=== PATIENT | female | born 1960 | race Caucasian/White ===

== ENCOUNTER 2023-10-24 23:52 | Observation (INO) | payer OTHER, SELFPAY ==
[2023-10-24] VITALS (12 sets, daily range): BP systolic 110–169; BP diastolic 77–102; BMI 26.7
--- NOTE | 2023-10-24 18:55 | ED.GENMED ---
History of Present Illness
<Dejuan Veras MD - Last Filed: 10/24/23 20:25>
General
Chief Complaint: Chest Pain
Source: patient
Exam Limitations: none
Time Seen by Provider: 10/24/23 18:46
Nursing documentation reviewed up to this point in time: agreed with
History of Present Illness
History of Present Illness:
Patient with history of hypercholesterolemia, who recently stopped taking her medication, presents to ED secondary to sudden onset of chest pain, shortly after returning home from attending [facility] around 3 PM. Chest pain described as pressure,
along with pain in the back along her scapula, with with radiation down her arm, along with nausea and 'not feeling well'. Denies shortness of breath. Denies dizziness. Denies diaphoresis. Patient states that she had similar episode 2 days ago
which resolved spontaneously. Denies smoking. Denies recent travel or surgery. Denies recent illness. There is family history of heart disease, with her father having an MT in his 40s.
Review of Systems
<Dejuan Veras MD - Last Filed: 10/24/23 20:25>
Review of Systems
Allergies reviewed?: Yes
All Other Systems: ROS reviewed and negative except as documented in HPI and ROS
Constitutional: Reports no symptoms
EENT: Reports no symptoms
Respiratory: Reports no symptoms
Cardiac: Reports chest pain
ABD/GI: Reports nausea
: Reports no symptoms
Musculoskeletal: Reports no symptoms
Skin: Reports no symptoms
Neurological: Reports no symptoms
Phy Exam
<Dejuan Veras MD - Last Filed: 10/24/23 20:25>
Physical Exam
Physical Exam:
Physical Exam
General: mild distress, not acutely ill. afebrile
Head: nc/at. eomi
Neck: supple. no meningeal signs.
Heart: s1/s2 regular rate and rhythm, no murmur. equal radial pulses.
Lungs: no acute respiratory distress. clear bilaterally
Abdomen: normal bowel sounds. not tender.
Neuro: alert and oriented. no focal neurological deficits
Skin: no rash
Psychiatric: well kept. interactive and cooperative
Extremities: no edema. no calf tenderness.
Scores
<Katie Dumont MD - Last Filed: 10/25/23 02:34>
Heart Score for Chest Pain Patients
STEMI patient?: Not applicable
Course
<Dejuan Veras MD - Last Filed: 10/24/23 20:25>
Orders/Labs/Results
Orders:
Orders
10/24/23 18:34
Electrocardiogram (*1) Urgent
Reason for Study: Chest Pain
EKG- Treatment ONCE
10/24/23 18:52
Complete Blood Count/With Diff Urgent
Comprehensive Metabolic Panel Urgent
Lipase Urgent
Prothrombin Time Urgent
Troponin I Urgent
10/24/23 18:54
CR Chest Portable - 1 View Urgent
Comment:
Reason For Exam: chest pain
Reason Study Needs to be Portable: Patient Unstable
10/24/23 18:55
Aspirin Chewable [Low Strength Aspirin] 324 mg PO NOW STA
Nitroglycerin Sublingual [Nitrostat (Sublingual)] 0.4 mg SL NOW STA
10/24/23 19:06
Nitroglycerin Ointment [Nitro-Bid] 0.5 inch TOPICAL NOW STA
Nitroglycerin Ointment [Nitro-Bid] 1 inch .ROUTE .STK-MED ONE
10/24/23 19:57
EKG- Treatment ONCE
10/24/23 21:30
Electrocardiogram (*1) Urgent
Reason for Study: Chest Pain
10/24/23 21:31
Troponin I Urgent
10/24/23 22:16
Electrocardiogram (*1) Urgent
Reason for Study: Chest Pain
EKG- Treatment ONCE
10/24/23 22:58
Admit/Transfer Patient As Directed
Co-Sign Provider:
Level of Care: Observation services
Assign to:: Telemetry
Physician / Group: [email or web address]
Diagnosis: CP evalaute for ACS
Reason for Telemetry: Chest Pain syndromes
Date to Stop Telemetry: 10/26/23
Time to Stop Telemetry: 11:00
10/24/23 22:59
Code Status As Directed
Resuscitation Status: Full Code
10/24/23 23:00
Flush (0.9% Sodium Chloride) [Flush (Nss)] See Dose Instructions IV PER PROTOCOL
10/24/23 23:01
Aspirin Chewable [Low Strength Aspirin] 81 mg PO NOW STA
10/25/23 00:32
Electrocardiogram (*1) Q6H
Reason for Study: Chest Pain
Comment: at admission and Q3H for total of 3, to be done with each troponin
Nitroglycerin Anderson [Nitrolingual Anderson] See Dose Instructions SL [id number] PRN
10/25/23 00:32
Echo 2D MMode Color/Doppler Routine
Reason for Study: chest pain
CARDIOLOGY CONSULT Routine
Consulting Provider: Ottoniel Delatorre
Was physician already notified: Yes
Reason for consult: CP evalaute for ACS
Activity As Directed
Activity Level: As Tolerated
INT (Intravenous Needle Therapy) As Directed
Comment: maintain peripheral IV access
Intake/ Output As Directed
Frequency: Per unit guidelines
Vital Signs As Directed
Frequency: q4h
Weight As Directed
Frequency: Daily
DX Deep Vein Thrombosis Video Routine
10/25/23 01:00
Glycohemoglobin (HgbA1c) Routine
Troponin I Q3H
Comment: at admit & Q3H for 3 total including ED draws, obtain ECG with each level
10/25/23 03:32
Troponin I Q3H
Comment: at admit & Q3H for 3 total including ED draws, obtain ECG with each level
10/25/23 Breakfast
Cholesterol Lowering
Cholesterol Lowering: Sodium, 2 Gram
Cardiovascular Evaluation IN AM
Complete Blood Count/No Diff IN AM
Comprehensive Metabolic Panel IN AM
10/25/23 06:32
Electrocardiogram (*1) Q6H
Reason for Study: Chest Pain
Comment: at admission and Q3H for total of 3, to be done with each troponin
Troponin I Q3H
Comment: at admit & Q3H for 3 total including ED draws, obtain ECG with each level
10/25/23 12:32
Electrocardiogram (*1) Q6H
Reason for Study: Chest Pain
Comment: at admission and Q3H for total of 3, to be done with each troponin
10/25/23 18:00
Atorvastatin [Lipitor] 20 mg PO QPM
Enoxaparin Sodium [Lovenox] 40 mg SC QPM
10/26/23 11:00
DC Protocol for Telemetry ONCE
Abnormal Lab Results
10/24/23
18:52
MCV 80.9 L fL
(81.0-99.0)
BUN 22 H mg/dl
(7-17)
Creatinine 1.2 H mg/dL
(0.6-1.0)
Glucose 121 H mg/dl
(70-99)
10/24/23 18:52
10/24/23 18:52
Vital Signs
Initial and Last Documented VS:
Initial Vital Signs
Temp Pulse Resp BP Pulse Ox
98.1 F 85 18 169/102 100
10/24/23 18:29 10/24/23 18:29 10/24/23 18:29 10/24/23 18:29 10/24/23 18:29
Last Documented Vital Signs
Temp Pulse Resp BP Pulse Ox
97.6 F 81 20 125/72 93
10/25/23 00:45 10/25/23 00:45 10/25/23 00:45 10/25/23 00:45 10/25/23 00:45
<Katie Dumont MD - Last Filed: 10/25/23 02:34>
Orders/Labs/Results
Orders:
Orders
10/24/23 18:34
Electrocardiogram (*1) Urgent
Reason for Study: Chest Pain
EKG- Treatment ONCE
10/24/23 18:52
Complete Blood Count/With Diff Urgent
Comprehensive Metabolic Panel Urgent
Lipase Urgent
Prothrombin Time Urgent
Troponin I Urgent
10/24/23 18:54
CR Chest Portable - 1 View Urgent
Comment:
Reason For Exam: chest pain
Reason Study Needs to be Portable: Patient Unstable
10/24/23 18:55
Aspirin Chewable [Low Strength Aspirin] 324 mg PO NOW STA
Nitroglycerin Sublingual [Nitrostat (Sublingual)] 0.4 mg SL NOW STA
10/24/23 19:06
Nitroglycerin Ointment [Nitro-Bid] 0.5 inch TOPICAL NOW STA
Nitroglycerin Ointment [Nitro-Bid] 1 inch .ROUTE .STK-MED ONE
10/24/23 19:57
EKG- Treatment ONCE
10/24/23 21:30
Electrocardiogram (*1) Urgent
Reason for Study: Chest Pain
10/24/23 21:31
Troponin I Urgent
10/24/23 22:16
Electrocardiogram (*1) Urgent
Reason for Study: Chest Pain
EKG- Treatment ONCE
10/24/23 22:58
Admit/Transfer Patient As Directed
Co-Sign Provider:
Level of Care: Observation services
Assign to:: Telemetry
Physician / Group: [email or web address]
Diagnosis: CP evalaute for ACS
Reason for Telemetry: Chest Pain syndromes
Date to Stop Telemetry: 10/26/23
Time to Stop Telemetry: 11:00
10/24/23 22:59
Code Status As Directed
Resuscitation Status: Full Code
10/24/23 23:00
Flush (0.9% Sodium Chloride) [Flush (Nss)] See Dose Instructions IV PER PROTOCOL
10/24/23 23:01
Aspirin Chewable [Low Strength Aspirin] 81 mg PO NOW STA
10/25/23 00:32
Electrocardiogram (*1) Q6H
Reason for Study: Chest Pain
Comment: at admission and Q3H for total of 3, to be done with each troponin
Nitroglycerin Anderson [Nitrolingual Anderson] See Dose Instructions SL [id number] PRN
10/25/23 00:32
Echo 2D MMode Color/Doppler Routine
Reason for Study: chest pain
CARDIOLOGY CONSULT Routine
Consulting Provider: Ottoniel Delatorre
Was physician already notified: Yes
Reason for consult: CP evalaute for ACS
Activity As Directed
Activity Level: As Tolerated
INT (Intravenous Needle Therapy) As Directed
Comment: maintain peripheral IV access
Intake/ Output As Directed
Frequency: Per unit guidelines
Vital Signs As Directed
Frequency: q4h
Weight As Directed
Frequency: Daily
DX Deep Vein Thrombosis Video Routine
10/25/23 01:00
Glycohemoglobin (HgbA1c) Routine
Troponin I Q3H
Comment: at admit & Q3H for 3 total including ED draws, obtain ECG with each level
10/25/23 03:32
Troponin I Q3H
Comment: at admit & Q3H for 3 total including ED draws, obtain ECG with each level
10/25/23 Breakfast
Cholesterol Lowering
Cholesterol Lowering: Sodium, 2 Gram
Cardiovascular Evaluation IN AM
Complete Blood Count/No Diff IN AM
Comprehensive Metabolic Panel IN AM
10/25/23 06:32
Electrocardiogram (*1) Q6H
Reason for Study: Chest Pain
Comment: at admission and Q3H for total of 3, to be done with each troponin
Troponin I Q3H
Comment: at admit & Q3H for 3 total including ED draws, obtain ECG with each level
10/25/23 12:32
Electrocardiogram (*1) Q6H
Reason for Study: Chest Pain
Comment: at admission and Q3H for total of 3, to be done with each troponin
10/25/23 18:00
Atorvastatin [Lipitor] 20 mg PO QPM
Enoxaparin Sodium [Lovenox] 40 mg SC QPM
10/26/23 11:00
DC Protocol for Telemetry ONCE
Abnormal Lab Results
10/24/23
18:52
MCV 80.9 L fL
(81.0-99.0)
BUN 22 H mg/dl
(7-17)
Creatinine 1.2 H mg/dL
(0.6-1.0)
Glucose 121 H mg/dl
(70-99)
10/24/23 18:52
10/24/23 18:52
Vital Signs
Initial and Last Documented VS:
Initial Vital Signs
Temp Pulse Resp BP Pulse Ox
98.1 F 85 18 169/102 100
10/24/23 18:29 10/24/23 18:29 10/24/23 18:29 10/24/23 18:29 10/24/23 18:29
Last Documented Vital Signs
Temp Pulse Resp BP Pulse Ox
97.6 F 81 20 125/72 93
10/25/23 00:45 10/25/23 00:45 10/25/23 00:45 10/25/23 00:45 10/25/23 00:45
<Dejuan Veras MD - Last Filed: 10/24/23 20:25>
MDM/Problems Addressed
MDM/Problems Addressed:
Patient given nitroglycerin sublingual, with complete resolution of chest pressure. Initial blood work without any acute abnormalities, including troponin. However, history and exam, along with nonspecific ST depression on EKG, concerning for
acute coronary syndrome.
Discussed with on-call cardiology, Dr. Delatorre. Recommends repeating troponin. If negative and patient remains chest pain-free, recommends discharging patient home with cardiology follow-up next week for further eval treatment, including
potential diagnostic studies. However, patient is to return to ED, if chest pain returns over the weekend.
<Dejuan Veras MD - Last Filed: 10/24/23 20:25>
*EKG
Interpreted by ED Provider?: Yes
EKG Intrepretation Date: 10/24/23
Heart Rate: 82
Rate: normal
Rhythm: sinus
Carpinteria: normal axis
Ischemia: ST depression
<Katie Dumont MD - Last Filed: 10/25/23 02:34>
*Critical Care Note
Total Time (30-74mins, 75-104mins- exclusive of procedures): Not Applicable
<Katie Dumont MD - Last Filed: 10/25/23 02:34>
Update Note
Update Note:
Delta troponin negative. Unfortunately patient with reoccurring chest pain. Repeat EKG with ST depression which is similar to prior. Will obtain other delta troponin 3 hours. Discussed with cardiology who recommended admission. Will give
additional nitro. Discussed with hospitalist who accepted
ED Attending Note
<Dejuan Veras MD - Last Filed: 10/24/23 20:25>
-
Portions of this chart may have been created with voice recognition software.� Occasional wrong word or��sound alike� substitutions may have occurred due to the inherent limitations of voice recognition software.
Discharge Plan
Departure
Patient Disposition: Admit
Date of Disposition: 10/24/23
Time of Disposition: 22:41
Presentation/result/management discussed w/ accepting MD/DO: Hospitalist
Discharge Problem:
Chest pain
Interventions
Interventions:
*Risk Screen - Suicide Last Done: 10/24/23 18:29
*General Assessment Last Done: 10/24/23 18:29
*Neglect/Abuse Screening Last Done: 10/24/23 18:29
ED- Fall Risk Assessment Last Done: 10/24/23 19:36
*ED COVID-19 Vaccine History Last Done: 10/25/23 00:20
*Nursing Disposition Last Done: 10/25/23 00:20
ED- Cardiac Assessment Last Done: 10/24/23 19:36
Discharge Date and Time
Discharge Date/Time: 10/25/23 00:22
[2023-10-24] MEDS: NITROSTAT (SUBLINGUAL) 0.4 MG SL (18:56)
[2023-10-24] MEDS: LOW STRENGTH ASPIRIN 324 MG PO (18:56)
[2023-10-24 18:59] LABS: % Basophils 0.6 % (0-2); % Eosinophils 2.6 % (0-6); % Immature Granulocytes 0.5 % (0-0.5); % Lymphocytes 26.1 % (20.5-51.1); % Monocytes 7.5 % (1.7-9.3); % Neutrophils 62.7 % (42.2-75.2); Absolute Basophils 0.1 10^3/uL (0-0.2); Absolute Eosinophils 0.2 10^3/uL (0-0.7); Absolute Lymphocytes 2.1 10^3/uL (1.2-3.4); Absolute Monocytes 0.6 10^3/uL (0.1-0.6); Absolute Neutrophils 5.1 10^3/uL (1.4-6.5); Hematocrit 38.9 % (37.0-47.0); Hemoglobin 13.2 g/dL (12.0-16.0); Mean Corp Hgb Conc. 33.9 g/dL (33.0-37.0); Mean Corpuscular Hgb 27.4 pg (27.0-31.0); Mean Corpuscular Volume 80.9 fL (81.0-99.0); Mean Platelet Volume 8.8 fL (7.4-10.4); Nucleated Red Blood Cells % 0 %; Platelet Count 326 10^3/uL (130-400); Red Blood Cell Count 4.81 10^6/uL (4.20-5.40); White Blood Cell Count 8.1 10^3/uL (4.8-10.8)
--- NOTE | 2023-10-24 19:02 | EDRN ---
Patient was brought back from triage and placed on monitor and line and labs completed, Dr. Veras concerned about patient, nitro SL and aspirin given, and repeat EKG done, Dr. Veras back in at bedside to re-asses patient, patient reports 'feeling weird'
when asked what she meant by that states dizzy, BP repeat, repeat is 134/91, she also has a headache, fluids put up and patient reports is now chest pain free, Dr. Veras orders nitro paste to be placed on patient and to re-assess.
[2023-10-24 19:09] LABS: INR 0.97; PT 12.7 Sec (11.4-14.6)
[2023-10-24 19:11] LABS: ALT (SGPT) 20 U/L (0-35); AST (SGOT) 28 U/L (14-36); Albumin 4.7 g/dl (3.5-5.0); Alkaline Phosphatase 88 U/L (38-126); Blood Urea Nitrogen 22 mg/dl (7-17); Calcium 10.1 mg/dl (8.4-10.2); Carbon Dioxide 29 mmol/L (22-30); Chloride 103 mmol/L (98-107); Estimated Creatinine Clearance 44 ml/min; Glucose 121 mg/dl (70-99); Lipase 201 U/L (23-300); Potassium 4.1 mmol/L (3.5-5.1); Sodium 141 mmol/L (135-145); Total Bilirubin 0.4 mg/dl (0.2-1.3); Total Protein 7.3 g/dl (6.3-8.2); eGFR 50.23
[2023-10-24] MEDS: NITRO-BID 0.5 INCH TOPICAL (19:17)
[2023-10-24 19:23] LABS: Troponin I < 0.012 ng/ml
--- NOTE | 2023-10-24 20:30 | EDRN ---
Patient remains pain free, aware we will repeat her troponin and EKG at 2130, lights turned down for comfort, call ornelas in reach will continue to monitor
[2023-10-24 22:02] LABS: Troponin I < 0.012 ng/ml
--- NOTE | 2023-10-24 22:17 | EDRN ---
Went in to update patient on labs and she reports about 5-10 min. ago her pain came back, chest through to the back, repeat EKG ordered and MD notified and will be in to see patient.
--- NOTE | 2023-10-24 22:55 | HPS.HSE ---
Family Physician
-
Family Physician: NOT KNOW UNKNOWN - PT DOES
Chief Complaint
-
CP
History of Present Illness
HPI
63F Non smoker HX HLD , non compliance with statin seen at ER for evalaution of CP:
- sudden onset of CP descibeds as pressure, also pain in the back alomh the scapula
- radtion down to her arm
- associated with nausea
POS FHX with father with CAD and OR at age of 55 .
ROS
Denies shortness of breath. Denies dizziness. Denies diaphoresis
Medical History
Past Medical History
Past Medical History: Reports Hypercholesterolemia (non compliance wit Statin )
Past Surgical History: Reports None
Social History
Tobacco: Non-smoker
Alcohol: None
Drug: None
Family History
Family History: CAD (POS FHX with father with CAD and OR at age of 55 )
Allergies / Home Medications
Allergies reflects when Allergies were last updated in [facility].
Home Medications with original date entered in [facility]
Allergy/Medication List:
Allergies
Allergy/AdvReac Type Severity Reaction Status Date / Time
NSAIDS (Non-Steroidal Allergy Unknown Itching Verified 10/24/23 18:34
Anti-Inflamma
sulfamethoxazole Allergy Unknown Itching Verified 10/24/23 18:34
[From Bactrim]
trimethoprim [From Bactrim] Allergy Unknown Itching Verified 10/24/23 18:34
Home Medications
berberine-herbal comb no.18 capsule 500 cap PO DAILY 10/24/23
garlic 1,000 mg PO PC 10/24/23
magnesium 250 mg tablet 250 mg PO DAILY 10/24/23
vitamin D3 25 mcg-vitamin K2 20 mcg-olive leaf extract 250 mg capsule 1 cap PO DAILY 10/24/23
Review of Systems
-
Constitutional: Reports No Symptoms
EENT: Reports No Symptoms
Respiratory: Reports No Symptoms
Cardiac: Reports See HPI and Chest Pain
Abdomen/GI: Reports No Symptoms
: Reports No Symptoms
Musculoskeletal: Reports No Symptoms
Skin: Reports No Symptoms
Neurological: Reports No Symptoms
Endocrine: Reports No Symptoms
Hematologic/Lymphatic: Reports No Symptoms
Psych: Reports No Symptoms
Physical Exam
Vital Signs
Vital Signs
Temp Pulse Resp BP Pulse Ox
98.1 F 75 12 139/82 99
10/24/23 18:29 10/24/23 20:47 10/24/23 20:45 10/24/23 20:30 10/24/23 20:45
Physical Exam
General: Well Developed, Well Nourished and No Apparent Distress
HEENT: NormoCephalic, Moist mucous membranes and Atraumatic
Respiratory: Clear
Cardiac: S1/S2 and Regular Rhythm; No Murmur or Rub
GI: Soft, Non Tender, Non Distended and Normal Bowel Sounds; No Organomegaly
Rectal: Deferred by Provider
Musculoskeletal: No Clubbing, No Cyanosis and No Edema
Skin: No Rash
Neuro: Nonfocal/grossly intact
Laboratory Results
-
10/24/23 18:52
10/24/23 18:52
Laboratory Results
PT 12.7 Sec (11.4-14.6) 10/24/23 18:52
INR 0.97 10/24/23 18:52
Total Bilirubin 0.4 mg/dl (0.2-1.3) 10/24/23 18:52
AST 28 U/L (14-36) 10/24/23 18:52
ALT 20 U/L (0-35) 10/24/23 18:52
Alkaline Phosphatase 88 U/L (38-126) 10/24/23 18:52
Troponin I < 0.012 ng/ml 10/24/23 21:31
Lipase 201 U/L (23-300) 10/24/23 18:52
Data Reviewed
-
Medical Tests (Nuc Med, Echo, EKG etc): Report Reviewed by me
Lab Data: Labs Reviewed by me
Impression/Plan
-
Reviewed VS: unremarkable
Data
Unremarkable CBC
BUN 22
Cr 1.2
eGFR 50
NEG TPNI
CXR: No acute cardiopulmonary abnormality.
1. EKG 10/24/23 & 1834
NORMAL SINUS RHYTHM WITH SINUS ARRHYTHMIA
POSSIBLE LEFT ATRIAL ENLARGEMENT
NONSPECIFIC ST AND T WAVE ABNORMALITY
ABNORMAL ECG
NO PREVIOUS ECGS AVAILABLE
2. EKG 10/24/23 & 2130
NORMAL SINUS RHYTHM
NONSPECIFIC ST AND T WAVE ABNORMALITY
ABNORMAL ECG
WHEN COMPARED WITH ECG OF 24-OCT-2023 18:59,
BORDERLINE CRITERIA FOR INFERIOR INFARCT ARE NO LONGER PRESENT
3. EKG 10/24/23 & 2216
NORMAL SINUS RHYTHM WITH SINUS ARRHYTHMIA
NONSPECIFIC ST AND T WAVE ABNORMALITY
ABNORMAL ECG
WHEN COMPARED WITH ECG OF 24-OCT-2023 21:34,
NO SIGNIFICANT CHANGE WAS FOUND
NO PRIOR DH and hospitalist admission:
ASSESSMENT & PLAN
Acute CP with radiation to Lt scapula and Lt UEx
Abnormal serial EKG with NOS ST and T abn with resolution
NEG TPNI
Evaluate for for ACS
POS FHX with father with CAD and OR at age of 55
- S/P ASA 325 mg and cont. baby ASA daily
- SL NTG PRN
- Trend TPNI and EKG
- CBC card consulted
HLD
- recently stopped Statin due to risk of dementia repoted from the article she recently read
- lipids profile
- consider resuming Statin
DVT Px: LMWH
Code: Full code
Obs TLM
--- NOTE | 2023-10-24 23:23 | EDRN ---
no delay sent to the floor
[2023-10-25] VITALS (8 sets, daily range): BP systolic 125–155; BP diastolic 72–93; BMI 27.6
--- NOTE | 2023-10-25 | EDRN ---
Patient ambulated to the restroom and back in bed and waiting for transport upstairs
[2023-10-25 02:32] LABS: Troponin I 0.022 ng/ml
[2023-10-25 05:12] LABS: Troponin I < 0.012 ng/ml
[2023-10-25 08:00] LABS: Hematocrit 39.5 % (37.0-47.0); Hemoglobin 13.3 g/dL (12.0-16.0); Mean Corp Hgb Conc. 33.7 g/dL (33.0-37.0); Mean Corpuscular Hgb 27.3 pg (27.0-31.0); Mean Corpuscular Volume 81.1 fL (81.0-99.0); Mean Platelet Volume 8.9 fL (7.4-10.4); Platelet Count 303 10^3/uL (130-400); Red Blood Cell Count 4.87 10^6/uL (4.20-5.40); White Blood Cell Count 6.6 10^3/uL (4.8-10.8)
[2023-10-25 08:22] LABS: Troponin I < 0.012 ng/ml
[2023-10-25 09:15] LABS: Glycohemoglobin (HgbA1c) 5.6 % (4.0-5.6)
[2023-10-25 10:16] LABS: ALT (SGPT) 19 U/L (0-35); AST (SGOT) 28 U/L (14-36); Albumin 4.4 g/dl (3.5-5.0); Alkaline Phosphatase 90 U/L (38-126); Blood Urea Nitrogen 18 mg/dl (7-17); Calcium 9.9 mg/dl (8.4-10.2); Carbon Dioxide 26 mmol/L (22-30); Chloride 104 mmol/L (98-107); Estimated Creatinine Clearance 55 ml/min; Glucose 90 mg/dl (70-99); HDL Cholesterol 56 mg/dl; LDL Cholesterol, Calculated 203 mg/dl; Potassium 4.3 mmol/L (3.5-5.1); Sodium 140 mmol/L (135-145); Total Bilirubin 0.7 mg/dl (0.2-1.3); Total Cholesterol 293 mg/dl (50-199); Triglyceride 174 mg/dl (10-149); Very Low Density Lipoprotein 34 mg/dl (0-30); eGFR > 60.00
--- NOTE | 2023-10-25 12:04 | CON.CAR ---
Consultation
Consultation Request
Date/Time Consultation Requested: October 25, 2023 12:32 AM
Date/Time Consultation Performed: October 25, 2023 11 AM
Requesting Provider: Hospitalist
Performing Provider: Ottoniel Delatorre
Reason for Consultation: Chest pain
Medical History
-
Chief Complaint: Chest pain
History of Present Illness:
63-year-old female with history of familial hyperlipidemia and asthma who is here for evaluation of chest pain. She tells me that approximately 2 or 3 days ago she woke up with mild chest tightness. It seemed to go away on its own. However,
yesterday she spent the day with her grandkids at a fair. She then developed chest discomfort again chest tightness afterwards, she also had some mild nausea and back discomfort. She had a couple of episodes and decided to go to the emergency
room. She additionally had an episode in the emergency room that responded to nitroglycerin. Thus, she was admitted for further evaluation. She has remained chest pain-free since then. I discussed possible heart catheterization and
echocardiogram on Friday. She is agreeable with this. Additionally, we will start a high intensity statin given her LDL greater than 200.
Past Medical History
Past Medical History: Asthma and Other (Hyperlipidemia)
Past Surgical History: None
Social History
Tobacco: Non-Smoker
Alcohol: None
Drug: None
Personal:
Living: With Family
Family History
Family History: Early CAD ([place] father age 55)
Allergies / Home Medications
Allergy/AdvReac Type Severity Reaction Status Date / Time
NSAIDS (Non-Steroidal Allergy Unknown Itching Verified 10/24/23 18:34
Anti-Inflamma
sulfamethoxazole Allergy Unknown Itching Verified 10/24/23 18:34
[From Bactrim]
trimethoprim [From Bactrim] Allergy Unknown Itching Verified 10/24/23 18:34
�Medication �Instructions �Recorded �Confirmed �Type
berberine-herbal comb no.18 capsule 500 cap PO DAILY 10/24/23 10/24/23 History
garlic 1,000 mg PO PC 10/24/23 10/24/23 History
magnesium 250 mg tablet 250 mg PO DAILY 10/24/23 10/24/23 History
vitamin D3 25 mcg-vitamin K2 20 1 cap PO DAILY 10/24/23 10/24/23 History
mcg-olive leaf extract 250 mg
capsule
Review of Systems
-
All other systems: Negative unless noted
Physical Exam
Vital Signs
Temp Pulse Resp BP Pulse Ox
98 F 79 14 141/93 98
10/25/23 11:26 10/25/23 11:26 10/25/23 11:26 10/25/23 11:26 10/25/23 11:26
Lab Results
10/25/23 07:29
10/25/23 07:29
Troponin I < 0.012 ng/ml 10/25/23 07:29
Physical Exam
General: Well Developed and Well Nourished
HEENT: Normocephalic
Respiratory: Clear and Non Labored Respirations
Cardiac: S1/S2 and Regular Rhythm
GI: Soft
Skin: Warm and Dry
Neuro: AO x 3
Hematologic/Lymphatic: No Lymphadenopathy
Psych: Calm
Impression / Plan
-
63-year-old female with history of asthma who is here for chest pain. Given the increased frequency with chest pain occurring concerning for possible unstable angina.
Chest pain possible unstable angina
-Aspirin 81 mg daily Crestor 40 mg daily start Imdur 30
-Coronary angiography and echocardiogram Friday
Hyperlipidemia
-Crestor 40 mg daily
Data Reviewed
-
EKG: Tracing Personally Visualized and interpreted
Labs: Labs Reviewed by me and Discussed with Physician
[2023-10-25] MEDS: LOW STRENGTH ASPIRIN 81 MG PO (14:04)
--- NOTE | 2023-10-25 14:54 | W.PN.HOSP.TC ---
Today's Communication/Plan
-
Cath friday
Assessment / Plan
Assessment / Plan
62-year-old female presented with chest pain
CVS: S1-S2 normal
Chest: CTA B/L
Abdomen: Soft, NT Bowel sounds present
Extremities: No edema
# Chest pain with radiation to left scapula and left upper extremity
No ST-T changes on EKG
5 sets of troponin negative
Family history of coronary disease-father age 55
Aspirin started
Cardiology consulted
For ECHO and Cath Friday
# Acute kidney injury-follow labs
# Hyperlipidemia recently stopped taking due to the risk of dementia reported on an article she read
Check fasting lipid profile-pending
# DVT prophylaxis-Lovenox
# Full code
D/W Family at bed side
Anticipated Discharge: 24 - 48 hours
Subjective/Interval History
-
Date of Service: October 25, 2023
Objective Data
-
Labs:
Laboratory Results
10/25/23
07:29
WBC 6.6
Hgb 13.3
Hct 39.5
Plt Count 303
Sodium 140
Potassium 4.3
Chloride 104
Carbon Dioxide 26
BUN 18 H
Creatinine 1.0
Glucose 90
Calcium 9.9
Total Bilirubin 0.7
AST 28
ALT 19
Alkaline Phosphatase 90
Vital Signs:
Vital Signs
Temp Pulse Resp BP Pulse Ox
98 F 79 14 141/93 98
10/25/23 11:26 10/25/23 11:26 10/25/23 11:26 10/25/23 11:26 10/25/23 11:26
I&O
10/24/23 10/25/23 10/26/23
06:59 06:59 06:59
Intake Total 0 / 0
Output Total 0 / 0
Balance 0 / 0
[2023-10-25] MEDS: PEPCID 20 MG PO (16:28)
[2023-10-25] MEDS: CRESTOR 40 MG PO (17:25)
[2023-10-25] MEDS: LOVENOX 40 MG SC (17:25)
[2023-10-26 03:48] VITALS: BP 145/93
[2023-10-26 06:00] VITALS: BMI 27.0
[2023-10-26 07:03] VITALS: BP 147/99
[2023-10-26] MEDS: LOW STRENGTH ASPIRIN 81 MG PO (08:18)
[2023-10-26] MEDS: PEPCID 20 MG PO (08:18)
--- NOTE | 2023-10-26 09:37 | CM ---
met with patient and spouse at bedside.patient lives with in house with 1 m[address],her bed and bath is on second level,she amb i and is i with her adl. her pcp is dr tammy kearns. she has no hx of vn or ip rehab.
PMH: high cholesterol,also uses a cpap at night.
patient adm with chest pain ro acs.she is for an echo and cardiac cath on friday.plan:patient is I and will dc home with no needs.
--- NOTE | 2023-10-26 10:41 | W.PN.CD ---
Today's Communication / Plan
-
NPO after midnight cath tomorrow
amlodipine 5 mg started
Impression / Plan
-
63-year-old female with history of asthma who is here for chest pain. Given the increased frequency with chest pain occurring concerning for possible unstable angina.
Chest pain possible unstable angina
-Aspirin 81 mg daily Crestor 40 mg daily start Im
-Coronary angiography and echocardiogram Friday
Hyperlipidemia
-Crestor 40 mg daily
HTN
- restart amlodipine 5 mg
Physical Exam
Vital Signs/Labs
Vital Signs
Temp Pulse Resp BP Pulse Ox
98 F 73 16 147/99 95
10/26/23 07:03 10/26/23 07:03 10/26/23 07:03 10/26/23 07:03 10/26/23 07:03
10/25/23 10/26/23 10/27/23
06:59 06:59 06:59
Actual Weight 160 lb 8 oz 157 lb 7 oz
10/25/23 07:29
10/25/23 07:29
PT 12.7 Sec (11.4-14.6) 10/24/23 18:52
INR 0.97 10/24/23 18:52
Triglycerides 174 mg/dl (10-149) H 10/25/23 07:29
LDL Cholesterol, Calc 203 mg/dl 10/25/23 07:29
VLDL Cholesterol, Calc 34 mg/dl (0-30) H 10/25/23 07:29
HDL Cholesterol 56 mg/dl 10/25/23 07:29
LAB Results
10/24/23 10/24/23 10/25/23
18:52 21:31 01:00
Troponin I < 0.012 < 0.012 0.022 D
10/25/23 10/25/23
04:26 07:29
Troponin I < 0.012 D < 0.012
Physical Exam
Constitutional: No acute distress
EENT: Anicteric
Cardiovascular: Rhythm & rate is regular and Pedal edema is absent
Respiratory: Respiratory effort normal and Lungs clear to auscul.
GI: Soft
Neuro/Psych: AO x 3
Data Reviewed
-
Date of Service: October 26, 2023
EKG: Tracing Personally Visualized and interpreted (sr)
Labs: Labs Reviewed by me
[2023-10-26 11:15] VITALS: BP 150/84
[2023-10-26] MEDS: NORVASC 5 MG PO (12:20)
--- NOTE | 2023-10-26 14:02 | W.PN.HOSP.TC ---
Today's Communication/Plan
-
ECHO and Cath Friday
Assessment / Plan
Assessment / Plan
62-year-old female presented with chest pain
CVS: S1-S2 normal
Chest: CTA B/L
Abdomen: Soft, NT Bowel sounds present
Extremities: No edema
# Chest pain with radiation to left scapula and left upper extremity
No ST-T changes on EKG
5 sets of troponin negative
Family history of coronary disease-father age 55
Aspirin started
Cardiology consulted
For ECHO and Cath Friday
# Acute kidney injury-resolving.
# Hyperlipidemia recently stopped taking due to the risk of dementia reported on an article she read
LDL 203 - Started Statin
# HTN- Amlodipine started
# DVT prophylaxis-Lovenox
# Full code
D/W Family at bed side
Anticipated Discharge: Within 24 hours
Subjective/Interval History
-
Date of Service: October 26, 2023
Objective Data
-
Vital Signs:
Vital Signs
Temp Pulse Resp BP Pulse Ox
98 F 76 16 150/84 96
10/26/23 11:15 10/26/23 11:15 10/26/23 11:15 10/26/23 11:15 10/26/23 11:15
I&O
10/25/23 10/26/23 10/27/23
06:59 06:59 06:59
Intake Total 0 / 0 1580 / 1580
Output Total 0 / 0
Balance 0 / 0 1580 / 1580
[2023-10-26 15:36] VITALS: BP 126/87
[2023-10-26] MEDS: CRESTOR 40 MG PO (17:44)
[2023-10-26] MEDS: LOVENOX SC (17:47)
[2023-10-26 20:00] VITALS: BP 137/81
[2023-10-26 23:30] VITALS: BP 140/92
[2023-10-27] VITALS (8 sets, daily range): BP systolic 117–139; BP diastolic 65–81; BMI 27.1
--- NOTE | 2023-10-27 08:26 | W.PN.CD ---
Today's Communication / Plan
-
cath today, further recs to follow; will need intensive lipid lowering as outpatient with likely multi-agent regimen to achieve goal LDL<70
Impression / Plan
-
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
Chest pain possible unstable angina
-now chest pain free
-ECG with inferiolateral TWIs
-troponin negative
-continue Aspirin 81 mg, Crestor 40 mg
-cath today
Hyperlipidemia
-Crestor 40 mg daily
-will likely need more than just statin to achieve goal LDL<70 given untreated LDLs in the 200s-300s
-extensive counseling provided on implications of HeFH
HTN
-continue amlodipine 5 mg
Physical Exam
Vital Signs/Labs
Vital Signs
Temp Pulse Resp BP Pulse Ox
36.5 C 86 16 139/76 98
10/27/23 03:35 10/27/23 03:35 10/27/23 03:35 10/27/23 03:35 10/27/23 03:35
10/26/23 10/27/23 10/28/23
06:59 06:59 06:59
Actual Weight 71.412 kg 71.441 kg
PT 12.7 Sec (11.4-14.6) 10/24/23 18:52
INR 0.97 10/24/23 18:52
Triglycerides 174 mg/dl (10-149) H 10/25/23 07:29
LDL Cholesterol, Calc 203 mg/dl 10/25/23 07:29
VLDL Cholesterol, Calc 34 mg/dl (0-30) H 10/25/23 07:29
HDL Cholesterol 56 mg/dl 10/25/23 07:29
LAB Results
10/24/23 10/24/23 10/25/23
18:52 21:31 01:00
Troponin I < 0.012 < 0.012 0.022 D
10/25/23 10/25/23
04:26 07:29
Troponin I < 0.012 D < 0.012
Physical Exam
Constitutional: No acute distress, Comfortable and Confusion
Cardiovascular: Rhythm & rate is regular, Pedal edema is absent, JVD pressure is normal, Systolic murmur absent and Diastolic murmur absent
Respiratory: Respiratory effort normal, Lungs clear to auscul. and Wheeze Absent
GI: Soft and Distention absent
Neuro/Psych: Alert, Oriented and AO x 3
Data Reviewed
-
Date of Service: October 27, 2023
Medical Decision Making: Reviewed Test Results
EKG: Tracing Personally Visualized and interpreted
X-Ray/CT/US/MRI/NUC/PET: Image Personally Visualized and interpreted
Labs: Labs Reviewed by me
[2023-10-27 09:03] LABS: Hematocrit 38.7 % (37.0-47.0); Hemoglobin 13.2 g/dL (12.0-16.0); Mean Corp Hgb Conc. 34.1 g/dL (33.0-37.0); Mean Corpuscular Volume 79.3 fL (81.0-99.0); Mean Platelet Volume 9.1 fL (7.4-10.4); Platelet Count 296 10^3/uL (130-400); Red Blood Cell Count 4.88 10^6/uL (4.20-5.40); Red Cell Dist. Width 12.9 % (11.5-14.5); White Blood Cell Count 6.5 10^3/uL (4.8-10.8)
[2023-10-27] MEDS: PEPCID 20 MG PO (09:34)
[2023-10-27] MEDS: LOW STRENGTH ASPIRIN 81 MG PO (09:34)
[2023-10-27] MEDS: NORVASC 5 MG PO (09:34)
[2023-10-27 09:36] LABS: Blood Urea Nitrogen 20 mg/dl (7-17); Calcium 9.7 mg/dl (8.4-10.2); Carbon Dioxide 29 mmol/L (22-30); Chloride 103 mmol/L (98-107); Estimated Creatinine Clearance 54 ml/min; Glucose 90 mg/dl (70-99); Potassium 4.5 mmol/L (3.5-5.1); Sodium 139 mmol/L (135-145); eGFR > 60.00
--- NOTE | 2023-10-27 09:50 | W.PN.HOSP.TC ---
Addendum entered and electronically signed by Usama Frances MD 10/27/23 14:24:
Total time spent on d/c = 31 min. This included today's physical exam, progress note, review of laboratory and diagnostic data, preparation of discharge documents and prescriptions, and discussions about the pt's hospital course and discharge plan
with the patient and other medical record specialist involved in the patient's care.
Addendum entered and electronically signed by Usama Frances MD 10/27/23 09:59:
I saw and evaluated the patient. I reviewed the resident�s note and agree with findings and plan as documented in the resident�s note.
No new complaints.
130/80, 76, 18, 97.8 F, 97% RA
Gen: NAD, AAOx3.
Eyes: EOMI, PERRLA, no scleral icterus.
Neck: supple.
CV: RRR, +S1/S2, no m/r/g.
Resp: CTAB, no rales, wheezes, or rhonchi.
Abd: +BS, soft, NT, ND
Skin: No rashes.
Neuro: CN 2-12 intact, non-focal.
Psych: Normal mood and affect.
Echo: EF 55-60%, G1DD, normal RV sz/fxn, no significant valvular disease
Chest pain:
-trops NEG x 5
-echo above
-for cath today
-statin restarted for HLD
-cont ASA
Essential HTN: cont Norvasc
Not, CHIDI has been ruled out (Cr was 1.2, now 1.0)
Original Note:
Today's Communication/Plan
-
Cath scheduled for today
Assessment / Plan
Assessment / Plan
62-year-old female presented with chest pain
CVS: S1-S2 normal
Chest: CTA B/L
Abdomen: Soft, NT Bowel sounds present
Extremities: No edema
# Chest pain with radiation to left scapula and left upper extremity
No ST-T changes on EKG
5 sets of troponin negative
Family history of coronary disease-father age 55
Aspirin started
Cardiology consulted
Echo showed LVEF 55-60%. Stage I diastolic dysfunction suggestive of abnormal relaxation
Cath scheduled for later today
# Acute kidney injury-resolving.
# Hyperlipidemia recently stopped taking due to the risk of dementia reported on an article she read
LDL 203 - Started Statin
# HTN- Amlodipine started
# DVT prophylaxis-Lovenox
# Full code
D/W Family at bed side
Anticipated Discharge: Within 24 hours
Subjective/Interval History
-
Date of Service: October 27, 2023
Pt anxious for procedure, but otherwise well
Objective Data
-
Labs:
Laboratory Results
10/27/23
08:06
WBC 6.5
Hgb 13.2
Hct 38.7
Plt Count 296
Sodium 139
Potassium 4.5
Chloride 103
Carbon Dioxide 29
BUN 20 H
Creatinine 1.0
Glucose 90
Calcium 9.7
Vital Signs:
Vital Signs
Temp Pulse Resp BP Pulse Ox
97.8 F 76 18 130/80 97
10/27/23 07:42 10/27/23 09:34 10/27/23 07:42 10/27/23 09:34 10/27/23 07:42
I&O
10/26/23 10/27/23 10/28/23
06:59 06:59 06:59
Intake Total 1580 / 1580 1420 / 1420
Balance 1580 / 1580 1420 / 1420
Review of Systems
-
History Source: Patient
Respiratory: Reports No Symptoms
Cardiac: Reports No Symptoms
Abdomen/GI: Reports No Symptoms
Genitourinary: Reports No Symptoms
Neuro: Reports No Symptoms
Psych: Reports Anxious
Physical Exam
-
Respiratory: Clear to Auscultation
Cardiac: Regular Rhythm and S1/S2
GI: Soft, Nontender and Nondistended
Musculoskeletal: No Edema
Skin: Warm and Dry
Neuro: AO x 3
Psych: Anxious
--- NOTE | 2023-10-27 10:47 | CM ---
Patient seen bedside with spouse, reports awaiting test (cardiac cath scheduled for today). Patient denies any needs upon discharge at this time. RIVERO form reviewed, refused to sign, placed in chart, patient provided with copy. CM will continue to
follow for all discharge planning needs.
Plan; home with spouse, no needs likely.
--- NOTE | 2023-10-27 11:38 | ITS.CL.CATH ---
[facility] - Catheterization
Cardiac Catheterization
Procedure Report:
CARDIAC CATHETERIZATION REPORT
Date of Procedure: 10/27/23
Referring: Dr. Ottoniel Delatorre
Indication: unstable angina
PROCEDURE:
1. Left heart catheterization.
2. Coronary angiography.
ACCESS:
6 [place] right radial artery
CATHETERS:
1. 6 [place] JL3.5
2. 6 [place] JR4
HEMODYNAMIC DATA
LV 157/-23 (EDP 3)
AO 150/85 (mean 111)
CORONARY ANGIOGRAPHY
Dominance: right
Left Main: normal
LAD: large vessel that gives rise to a small D1 and large D2. There is no coronary artery disease.
LCx: large vessel that gives rise to a large OM1 and small OM2. There is no coronary artery disease.
RCA: large dominant vessel that gives rise to a moderate caliber RPDA and moderate caliber RPL branch. There is no coronary artery disease.
Closure Device: TR band
Radiation dose (mGy): 187.53
DAP (cm2.Gy): 15.9532
Fluoroscopy time (minutes): 2.0
CONCLUSIONS:
1. Normal LV filling pressure and no aortic stenosis.
2. Normal coronary arteries in a right dominant system.
RECOMMENDATIONS:
1. Expectant management after cardiac catheterization via right approach.
2. Aggressive primary prevention of coronary artery disease with high intensity statin and goal LDL<70 given HeFH.
3. No coronary indication for half-way ASA therapy based on cath result.
Copy to: Dr. Caroline Eaton MD
Signed: Caleb Felix MD, PhD
--- NOTE | 2023-10-27 12:15 | PTCARENOTE ---
pt back from supervisor labor gang s/p cardiac cath. pt is AAO*3, Vss, room air 95%. arm band in place. call ornelas within the reach. plan of care ongoing.
--- NOTE | 2023-10-27 13:46 | W.DCSUMMARY ---
Addendum entered and electronically signed by Usama Frances MD 10/27/23 14:24:
Read, reviewed, and agree. See same day progress note for additional details. Time spent coordinating care, DC planning, review of DC plan of care with resident, transition of care, review of records in EMR, med rec, consults, notes, d/w
consultants, nursing, family, and CM mins
Original Note:
Discharge Summary
Discharge Data
Date of Admission: 10/24/23
Date of Discharge: 10/27/23
-
Pending Results: No
Hospital Course
Primary diagnosis:
Chest pain
Cardiac catheterization
Essential hypertension
Hyperlipidemia
Hospital course:
Yaneli is a 63-year-old female who presented to the ED on 10/24/2023 with chest pain. She said it started suddenly and describes the pain as a pressure that radiated down the arm and to the back associated with nausea. She has had mild episodes of
chest pain in the past that went away on its own. She had another episode in the ED that responded to nitroglycerin. She denied any SOB, dizziness, diaphoresis. Father of an FL at age 55. Patient was started on FL workup in the ED. EKG
revealed normal sinus rhythm with nonspecific ST and T wave abnormalities. Troponins were trended. At their highest they went up to 0.022 early the morning of 10/24, then they down trended to be <0.012. Cardiology evaluated the patient and patient
agreed for an echo and cardiac cath for Friday. On Friday, echo revealed LVEF 55 to 60% and stage I diastolic dysfunction suggestive of abnormal relaxation, but otherwise normal. Cardiac cath revealed no CAD. Aggressive primary prevention of CAD
with high intensity statin with goal of LDL less than 70 recommended. Lipid panel revealed triglycerides 174, total cholesterol 293, LDL 203, VLDL 34, HDL 56. D[employer] Voucher Clerk noted there is no indication for long-term ASA therapy at this point.
Today, patient is clinically stable. She has plans to follow-up with cardiology. She has started on rosuvastatin 40 and amlodipine 5 for high blood pressure.
Discharge Plan
-
Patient Disposition: Home (Routine Discharge)
Discharge Diagnosis/Procedures: Chest pain, cardiac catheterization, essential hypertension, hyperlipidemia
Condition: Good
Diet: Low Cholesterol
Activity: No restrictions
Driving Restrictions: As prior to admission
Bathing Restrictions: None
Stand Alone Forms: DC Instructions- Cath/EP Lab
Referrals:
Caroline Eaton MD [Non-Admitting Privileges] - in less than 1 week
Maria C Maxwell CRNP [Specified Professional Personl] - 11/25/23 1:00 pm
Prescriptions:
New
amlodipine 5 mg Tablet
5 mg PO DAILY Qty: 30 0RF
rosuvastatin 40 mg Tablet
40 mg PO QPM Qty: 30 0RF
Continued
magnesium 250 mg Tablet
250 mg PO DAILY
vit D3-vit K2-olive leaf ext 25 mcg-20 mcg- 250 mg Capsule
1 cap PO DAILY
Rx Instructions:
patient takes a dose that is 125mcg vit d3 & 100mcg of k2
Discontinued
garlic Tablet
1,000 mg PO PC
berberine-herbal comb no.18 Capsule
500 cap PO DAILY
Discharge Orders:
Discharge Patient (As Directed); Ordered 10/27/23
Ordered By: Usama Frances
Discharge Date and Time
Print Language: TUNISIAN
== END 2023-10-27 15:41 | disposition home or self-care (01) ==
LOC: 4 EAST ACU 23:52
PROVIDERS: Hospitalist; ADMITTING PHYSICIAN Internal Medicine; ATTENDING PHYSICIAN Internal Medicine; CONSULT PHYSICIAN Internal Medicine Cardiovascular Disease; EMERGENCY PHYSICIAN Emergency Medicine
DX: R07.89 Other chest pain (principal); E78.00 Pure hypercholesterolemia, unspecified; M79.603 Pain in arm, unspecified; R11.0 Nausea; M54.9 Dorsalgia, unspecified; J45.909 Unspecified asthma, uncomplicated; I10 Essential (primary) hypertension; I49.8 Other specified cardiac arrhythmias; E78.49 Other hyperlipidemia; E78.1 Pure hyperglyceridemia; Z91.148 Patient's other noncompliance with medication regimen for other reason; Z82.49 Family history of ischemic heart disease and other diseases of the circulatory system; Z88.1 Allergy status to other antibiotic agents; Z88.2 Allergy status to sulfonamides; Z88.6 Allergy status to analgesic agent
CPT/HCPCS: 71045; 80048; 80053; 80061; 83036; 83690; 84484; 85025; 85027; 85610; 93005; 93306; 93458; 99285; C1894; G0378; Q9967

== ENCOUNTER → 2024-03-15 14:08 | Outpatient (REF) | payer OTHER, SELFPAY | LOC: DHSLP 14:08 | PROVIDERS: ATTENDING PHYSICIAN Student in an Organized Health Care Education/Training Program; FAMILY PHYSICIAN Family Medicine | DX: G47.33 Obstructive sleep apnea (adult) (pediatric) (principal) | CPT/HCPCS: 95811 ==